=== PATIENT | female | born 1965 | race African-American/Black ===

== ENCOUNTER 2017-09-29 13:39 | Inpatient (IN) | payer OTHER ==
[~2017-09-29] VITALS: Ht 165.1 cm; Wt 102.7 kg
--- NOTE | ~2017-09-29 | HC ---
[facility] [place] [address] CONSULTATION Name: ANTOLIN POST Room #: 516-1 ADM IN M.R.#: [id number] Admission: 09/29/17 Attend Phys: Miguel Torres MD Discharge: Date of : 61 Report #: [id number] THIS REPORT FOR: //name// CC: Miguel Torres FAM physician/PCP DATE OF SERVICE: 10/05/2017 NEUROBEHAVIORAL STATUS EXAM: ATTENDING PHYSICIAN: Miguel Torres MD. EMPLOYMENT ADVISOR: Jose Elias Shah, PhD. CLINICAL PRESENTATION: The patient is a 51-year-old female admitted to the rehab unit at [facility] for comprehensive inpatient rehabilitation program to improve functional mobility, activities of daily living and self-care and mental status secondary to a right periventricular stroke. She presents with a dense left hemiplegia. Cognitive deficits are noted along with swallowing concerns. She has a history of brain cancer and is status post craniotomy in 1992, hypertension, hypothyroidism, iron deficiency anemia, urinary incontinence, history of depression and exogenous obesity is also reported. A complete description of her medical condition and history can be found in her medical record. Neuropsychological consultation was requested to provide assistance in the assessment of cognitive and emotional status and to provide recommendations and services. 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 The patient is a college graduate. She graduated from [employer] and remained in the for about 4-1/2 years. She is with one child. She is worried about her child's well being as her daughter has a history of drug abuse. The patient had been living with a male scabbler prior to her stroke. She has 4 sisters and one brother. TECHNIQUES UTILIZED: Clinical interview, review of medical records, staff consultation and behavioral observation, mini mental status exam 2 standard version and verbal fluency assessment and brief abstract reasoning test. EXAMINATION FINDINGS: The patient was alert and cooperative with the assessment. Her volume is quite soft during verbal expression. She accurately described the reason for her hospitalization. There is no evidence of aphasia. Her thoughts are logical and goal oriented. There is no evidence of thought disorder. She does not report auditory or visual hallucinations. The patient [address] [address] CONSULTATION Name: ANTOLIN POST Room #: 516-1 ADM IN .R.#: [id number] Admission: 09/29/17 Attend Phys: Miguel Torres MD Discharge: Date of : 61 Report #: [id number] is left handed and has left hemiparesis. However, she most likely has speech dominant in the left hemisphere as there is no aphasia that is noted. Symptoms are reported to include anxiety and depression. Her performance on the MMSE 2 brief version was a T score of 20, percentile rank of less than 1 suggesting moderate deficits. She was 3 of 3 for initial registration, 3 of 5 for orientation to time, 5 of [address] and 1 of 3 for immediate recall of 3 items after a brief time delay and distraction. Performance on the MMSE 2 standard version improved to a raw score of 23 and a T score of 24, which is still less than the 1st percentile. She was 4 of 5 for serial sevens, 2 of 2 for naming, 1 of 1 for repetition and 3 of 3 for auditory comprehension. She could read and follow a single command. Because of the hemiparesis, she was unable to write a sentence or copy a simple geometric design. Performance in letter fluency was in the mild to moderate range of impairment with a raw score of 20 and T score 32 and percentile rank of 4. Category fluency assessment was in the mild range of impairment with a T score of 36 and a percentile rank of 8. Brief abstract reasoning assessment was in the impaired range with a raw score of 5 of 8. The patient is showing deficits in immediate recall, verbal fluency suggesting impairment in organization, planning and problem solving. Mood appears depressed with increased anxiety in regard to her wellbeing and concern for her daughter. 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 Unspecified depressive disorder with anxiety. RECOMMENDATIONS: Continued involvement in the therapeutic program that includes verbal praise and complements about participation and emphasis on intact functioning that has not been impacted by the stroke. She may benefit from an antidepressant medication. The patient is currently taking nortriptyline at night. However, the use of an antidepressant, e.g., Lexapro, would be of benefit to assist in overall adjustment. A followup neuropsychological assessment after discharge will be of benefit to clarify the severity of cognitive deficits. [address] [address] CONSULTATION Name: ANTOLIN POST Room #: 516-1 ADM IN M.R.#: [id number] Admission: 09/29/17 Attend Phys: Miguel Torres MD Discharge: Date of : 61 Report #: [id number] Thank you very much for allowing me to provide the consultation on this patient. <ELECTRONICALLY SIGNED> By: Jose Elias Shah, PhD 10/06/17 1853 [id number] Jose Elias Shah, PhD /
--- NOTE | ~2017-09-29 | H ---
[facility] [place] [address] HISTORY AND PHYSICAL Name: SEJALANTOLIN Room #: 516-1 ADM IN M.R.#: [id number] Admission: 09/29/17 Attend Phys: Miguel Torres MD Discharge: Date of : 61 Report #: [id number] THIS REPORT FOR: //name// CC: Miguel Torres [facility] physician/PCP DATE OF SERVICE: 09/29/2017 HISTORY AND PHYSICAL/POSTADMISSION PHYSICIAN EVALUATION HISTORY OF PRESENT ILLNESS: The patient is a 51-year-old female, admitted from the [facility] to the acute inpatient rehabilitation [place] here at [facility]. She has a prior medical history of brain cancer, status post craniotomy in 1992, history of hypertension, and obesity, who presented with 3-month history of ataxia associated with flattening of affect and acute worsening over the past 3 days prior to her admission to the [place]. Her left-sided weakness progressed where she basically developed dense weakness of the left upper and left lower extremity. Initial radiographic evaluation was negative, but a followup MRI showed more conclusive evidence of stroke in the right periventricular area explaining the left-sided weakness. She has significant functional mobility and ADL deficits as well as cognitive and some swallowing concerns and she has now been transferred to the acute inpatient rehab [place] for inpatient multidisciplinary rehabilitation therapy. PAST MEDICAL HISTORY: Brain cancer, status post craniotomy as noted above. She has history of hypertension, hypothyroidism, and exogenous obesity. There is a noted history of urinary incontinence, which has been a chronic issue, and history of depression. MEDICATIONS: Please see the full medication listing. This includes vitamins, herbals, and supplements. ALLERGIES: INCLUDE LISINOPRIL. DIET: She is on a 2-gram sodium diet. SOCIAL HISTORY: She lives in a house with her male significant other. There are a number of steps into the house. She notes that her boyfriend is currently looking for a job close by his parents' house. Her father apparently works, but her stepmother does not work. REVIEW OF SYSTEMS: She did not offer any current complaints of chest pain, shortness of breath or abdominal discomfort. She notes the left-sided weakness. Denies any focal extremity pain complaints. PHYSICAL EXAMINATION: [facility] [address] [place] [address] HISTORY AND PHYSICAL Name: ANTOLIN POST Room #: 516-1 ADM IN [facility].#: [id number] Admission: 09/29/17 Attend Phys: Miguel Torres MD Discharge: Date of : 61 Report #: [id number] GENERAL: She is a pleasant, obese, 51-year-old -Filipino female, in no obvious distress. She is alert. VITAL SIGNS: Temperature 36.7, pulse 100, respirations 20, blood pressure 131/81. HEENT: Appear to be benign. Appears to be able to scan to the left side reasonably well. NEUROLOGIC: She does have a depressed left nasolabial fold. She is able to verbalize quite well. I could not detect any obvious word finding problems. CHEST: Sounded clear to auscultation. CARDIOVASCULAR: Regular rate and rhythm. ABDOMEN: Obese, bowel sounds positive, nontender. GENITOURINARY AND RECTAL: Deferred. SCALP: She does have a hat on in. Notes that she did have a prior history of a craniotomy. MUSCULOSKELETAL: She has functional range of motion of the right upper and right lower extremity without obvious focal weakness. She notes she premorbidly is left handed. She has dense left upper extremity plegia and left lower extremity plegia with no volitional movement. DTRs are flaccid. There is no calf swelling. No distal lower extremity edema. She has been needing 2 people to assist with transfers. ASSESSMENT: A 51-year-old left-handed -Filipino female with the following problem list: 1. Right periventricular area stroke. 2. Dense left hemiplegia. 3. Cognitive concerns as well as some swallowing concerns. Nursing questioned how she was able to do with her pills. We will have speech therapy evaluate swallowing. She was admitted on a low-sodium diet. 4. Past history of brain cancer, status post craniotomy in 1992. 5. Hypertension. 6. Hypothyroidism. 7. Iron deficiency anemia. 8. History of urinary incontinence. 9. History of depression. 10. Exogenous obesity. PLAN: The patient is admitted for acute in-hospital inpatient rehabilitation. From a postadmission physician evaluation perspective, there are no relevant changes since the preadmission screening. Please see the above review of prior and current medical and functional conditions and comorbidities. Please see the patient's previous and current functional status. As far as risk of complications, this patient has multiple medical comorbidities as noted above. The initial plan of care involves the interdisciplinary acute inpatient rehabilitation program with the goal of maximizing the patient's functional independence, so that she can hopefully return back to her prior living situation. Measurable functional goals will include transfers, basic mobility, [facility] [address] [place] [address] HISTORY AND PHYSICAL Name: BOARD,ANTOLIN EUNICE Room #: 516-1 ADM IN M.R.#: [id number] Admission: 09/29/17 Attend Phys: Miguel Torres MD Discharge: Date of : 61 Report #: [id number] ADLs, maximizing her functional independence, cognitive as well as swallowing issues. Prognosis is reasonably good, although she is likely going to need a fair amount of assistance post-discharge depending upon how she progresses. Estimated length of stay is probably several weeks at her lower level. Potential barriers would include her multiple medical comorbidities and decreased functional status. <ELECTRONICALLY SIGNED> By: Miguel Torres MD 10/03/17 1023 [id number] [id number] Miguel Torres MD /nt
--- NOTE | ~2017-09-29 | PLAN ---
[facility] [place] [address] REHAB UNIT PLAN OF CARE Name: ANTOLIN POST Room #: 516-1 ADM IN M.R.#: [id number] Admission: 09/29/17 Attend Phys: Miguel Torres MD Discharge: Date of : 61 Report #: [id number] THIS REPORT FOR: //name// CC: Miguel Torres [facility] physician/PCP DATE OF SERVICE: 10/01/2017 PROGRESS NOTE/OVERALL PLAN OF CARE The patient is seen back today in followup. No new complaints. Last recorded temperature 98.3, pulse 91, respirations 20, blood pressure 127/76. She is now showing a little bit of return of the left upper extremity with a grade trace-to-2+ left wrist extension, she has got at least a grade 2 elbow flexion. Left lower extremity, she does have some knee extension at grade 2, no movement of the ankle or foot. She has at least a trace left finger flexion. Functionally, transfers are max assist, she is unable to ambulate. In occupational therapy, lower body dressing is dependent and upper body dressing is max assist. In speech therapy, she has mild comprehensive deficits. ASSESSMENT: 1. Right periventricular area stroke. 2. Dense left hemiparesis with some volitional recovery appearing. 3. Cognitive concerns and swallowing concerns. Speech Therapy is involved. They have asked me to add VitalStim to her left labial area. 4. Past history of brain cancer status post craniotomy in 1992. 5. Hypertension. 6. Hypothyroidism. 7. Iron deficiency anemia. 8. History of urinary incontinence. 9. History of depression. 10. Anxiety. 11. Obesity. PLAN: The overall plan of care is based on the preadmission screen, postadmission physician evaluation, and information garnered from therapy assessments. 1. Estimated length of stay is probably fairly long, 3-4 weeks, potentially longer pending progress. She is at a lower functional level. 2. Medical prognosis is reasonably good. 3. Anticipated interventions include the interdisciplinary acute inpatient rehabilitation program with PT, OT, speech rehab, nursing assisting regarding medication management, skin care prophylaxis, bowel and bladder issues and nursing education. Case management is involved as well as the corporate health consultant physicians. 4. Anticipated functional outcomes would be for the patient to ideally become [place] [id number] REHAB UNIT PLAN OF CARE Name: ANTOLIN POST EUNICE Room #: 516-1 ADM IN [facility].#: [id number] Admission: 09/29/17 Attend Phys: Miguel Torres MD Discharge: Date of : 61 Report #: [id number] modified independent at least initially at the wheelchair level and then hopefully further progress from there. 5. Discharge destination would be probably to her parents' house as it is my understanding has fewer steps than her male significant other. 6. Expected therapy by discipline includes PT, OT and speech 1 hour per day, each five days a week throughout the duration of the acute inpatient rehabilitation stay. <ELECTRONICALLY SIGNED> By: Miguel Torres MD 10/03/17 1025 1015 [id number] Miguel Torres MD /nt
--- NOTE | ~2017-09-29 | HC ---
[facility] [place] [address] CONSULTATION Name: ANTOLIN POST Room #: 516-1 ADM IN M.R.#: [id number] Admission: 09/29/17 Attend Phys: Miguel Torres MD Discharge: Date of : 61 Report #: [id number] THIS REPORT FOR: //name// CC: Miguel Torres FAM physician/PCP DATE OF SERVICE: 10/13/2017 PROGRESS NOTE ATTENDING PHYSICIAN: Miguel Torres MD SUBJECTIVE: The patient was seen for followup psychological services. A concern in regard to depression has been noted. The patient is continuing to deny subjective depression or anxiety. However, her mood and affect appears depressed. She does not report difficulty with appetite or sleep. She indicates a desire to walk out of the hospital, suggesting decreased insight into the type of deficits she is experiencing and the extent of impairment. Diminished insight into deficits will likely create safety concerns. The focus of therapy in regard to depression includes encouraging awareness of intact levels of functioning and the opportunity to develop new skills in regard to the nondominant hand. Identifying strengths and resources that are intact as well as the perception of new skill development is a way to enhance hopefulness. The patient also reports concern about her ability to walk. We discussed the purpose of ambulation and mobility and how that could possibly be obtained with use of a wheelchair. She is likely to benefit from the use of an antidepressant medication to improve overall mood. Verbal praise and complements about participation in therapies along with emphasis on the development of new skills will also assist her overall adjustment. Thank you very much for allowing me to provide the consultation on this patient. <ELECTRONICALLY SIGNED> By: Jose Elias Shah, PhD 10/20/17 1725 1622 1641 Jose Elias Shah, PhD /nt
[2017-09-29 18:49] VITALS: BP 138/86
[2017-09-29 22:25] VITALS: BP 147/74
[2017-09-30 08:30] VITALS: BP 131/81
[2017-09-30 14:42] LABS: HEMATOCRIT 33.6 % (37.0-47.0); HEMOGLOBIN 11.2 gm/dL (12.0-15.0); MCH 28.1 pg (26.0-34.0); MCHC 33.2 g/dL (28.0-37.0); MCV 84.7 fL (80.0-100.0); RBC 3.97 mil/uL (4.20-5.00); RDW 15.7 % (10.5-14.5); WBC 5.6 thou/uL (4.0-11.0)
[2017-09-30 14:48] LABS: CALCIUM 9.4 mg/dL (8.5-10.1); POTASSIUM 4.4 mmol/L (3.5-5.1)
[2017-09-30 20:30] VITALS: BP 127/76
[2017-10-01 08:15] VITALS: BP 130/78
[2017-10-01 13:35] LABS: CHOLESTEROL 142 mg/dL (<200); HDL CHOLESTEROL 51 mg/dL (>40); LDL CHOLESTEROL 74 mg/dL (<100); TC:HDL 2.8 Ratio (Not establshd); TRIGLYCERIDE 89 mg/dL (<150); VLDL 18 mg/dL (<40)
[2017-10-01 22:06] VITALS: BP 145/53
[2017-10-02 08:15] VITALS: BP 130/89
[2017-10-02 21:47] VITALS: BP 152/91
[2017-10-03 08:34] VITALS: BP 134/82
[2017-10-03 21:19] VITALS: BP 134/65
[2017-10-04 08:30] VITALS: BP 125/68
[2017-10-04 14:07] LABS: HEMATOCRIT 32.3 % (37.0-47.0); HEMOGLOBIN 10.8 gm/dL (12.0-15.0); MCH 28.3 pg (26.0-34.0); MCHC 33.4 g/dL (28.0-37.0); MCV 84.8 fL (80.0-100.0); RBC 3.81 mil/uL (4.20-5.00); RDW 15.9 % (10.5-14.5); WBC 5.4 thou/uL (4.0-11.0)
[2017-10-04 14:29] LABS: ALBUMIN 3.3 g/dL (3.4-5.0); CALCIUM 9.2 mg/dL (8.5-10.1); MAGNESIUM 2.3 mg/dL (1.8-2.4); POTASSIUM 3.7 mmol/L (3.5-5.1); TOTAL BILIRUBIN 0.3 mg/dL (<0.1-1.0); TOTAL PROTEIN 7.8 g/dL (6.4-8.2)
[2017-10-04 19:28] VITALS: BP 152/73
[2017-10-05 06:24] LABS: HEMATOCRIT 31.4 % (37.0-47.0); HEMOGLOBIN 10.4 gm/dL (12.0-15.0); MCHC 33.1 g/dL (28.0-37.0); MCV 84.5 fL (80.0-100.0); RBC 3.72 mil/uL (4.20-5.00); RDW 15.4 % (10.5-14.5); WBC 6.1 thou/uL (4.0-11.0)
[2017-10-05 06:32] LABS: CALCIUM 9.1 mg/dL (8.5-10.1); CREATININE 0.9 mg/dL (0.6-1.0); MAGNESIUM 2.3 mg/dL (1.8-2.4); POTASSIUM 3.5 mmol/L (3.5-5.1)
[2017-10-05 08:30] VITALS: BP 134/85
[2017-10-05 19:47] VITALS: BP 140/60
[2017-10-06 07:45] VITALS: BP 147/81
[2017-10-06 21:05] VITALS: BP 144/88
[2017-10-07 06:51] LABS: CALCIUM 9.1 mg/dL (8.5-10.1); CREATININE 0.9 mg/dL (0.6-1.0); POTASSIUM 3.4 mmol/L (3.5-5.1)
[2017-10-07 08:45] VITALS: BP 133/87
[2017-10-07 19:57] VITALS: BP 120/80
[2017-10-08 09:00] VITALS: BP 137/78
[2017-10-08 20:11] VITALS: BP 118/77
[2017-10-09 08:05] VITALS: BP 121/71
[2017-10-09 20:30] VITALS: BP 138/79
[2017-10-10 06:33] LABS: ABSOLUTE NEUTROPHILS 2.8 thou/uL (1.4-8.2); BASOPHILS 1.1 % (0.0-2.0); EOSINOPHILS 4.6 % (0.0-3.0); HEMATOCRIT 31.1 % (37.0-47.0); HEMOGLOBIN 10.5 gm/dL (12.0-15.0); LYMPHOCYTES 24.9 % (24.0-44.0); MCH 28.5 pg (26.0-34.0); MCHC 33.6 g/dL (28.0-37.0); MCV 84.7 fL (80.0-100.0); MONOCYTES 9.1 % (1.0-8.0); PLATELET COUNT 407 thou/uL (150-400); POLYS 60.3 % (36.0-66.0); RBC 3.67 mil/uL (4.20-5.00); RDW 15.5 % (10.5-14.5); WBC 4.7 thou/uL (4.0-11.0)
[2017-10-10 06:44] LABS: CALCIUM 9.1 mg/dL (8.5-10.1); CREATININE 0.9 mg/dL (0.6-1.0); MAGNESIUM 2.3 mg/dL (1.8-2.4); POTASSIUM 3.6 mmol/L (3.5-5.1)
[2017-10-10 09:00] VITALS: BP 134/96
[2017-10-10 20:46] VITALS: BP 152/78
[2017-10-11 08:00] VITALS: BP 136/78
[2017-10-11 21:28] VITALS: BP 138/80
[2017-10-12 08:40] VITALS: BP 124/76
[2017-10-12 20:55] VITALS: BP 130/78
[2017-10-13 08:47] VITALS: BP 130/72
[2017-10-13 19:40] VITALS: BP 138/62
[2017-10-14 06:24] LABS: CALCIUM 8.9 mg/dL (8.5-10.1); POTASSIUM 3.8 mmol/L (3.5-5.1)
[2017-10-14 08:00] VITALS: BP 124/72
[2017-10-14 20:05] VITALS: BP 138/86
[2017-10-15 09:17] VITALS: BP 134/83
[2017-10-15 20:00] VITALS: BP 146/42
[2017-10-16 08:29] VITALS: BP 127/75
[2017-10-16 21:08] VITALS: BP 131/66
[2017-10-17 07:20] VITALS: BP 113/71
[2017-10-17 20:06] VITALS: BP 133/74
[2017-10-18 08:00] VITALS: BP 138/79
[2017-10-18 21:03] VITALS: BP 136/76
[2017-10-19 08:00] VITALS: BP 129/84
[2017-10-19 20:15] VITALS: BP 133/82
[2017-10-20 10:09] VITALS: BP 144/78
[2017-10-21 08:00] VITALS: BP 130/78
[2017-10-21 20:00] VITALS: BP 141/84
[2017-10-22 04:51] LABS: CALCIUM 8.8 mg/dL (8.5-10.1); MAGNESIUM 2.3 mg/dL (1.8-2.4); POTASSIUM 3.5 mmol/L (3.5-5.1)
[2017-10-22 05:22] LABS: BASOPHILS 1.1 % (0.0-2.0); EOSINOPHILS 5.5 % (0.0-3.0); HEMATOCRIT 29.3 % (37.0-47.0); HEMOGLOBIN 9.8 gm/dL (12.0-15.0); LYMPHOCYTES 25.1 % (24.0-44.0); MCH 28.4 pg (26.0-34.0); MCHC 33.4 g/dL (28.0-37.0); MCV 84.9 fL (80.0-100.0); MONOCYTES 9.4 % (1.0-8.0); PLATELET COUNT 388 thou/uL (150-400); POLYS 58.9 % (36.0-66.0); RBC 3.45 mil/uL (4.20-5.00); RDW 15.8 % (10.5-14.5)
[2017-10-22 08:45] VITALS: BP 127/86
[2017-10-22 20:00] VITALS: BP 138/74
[2017-10-23 20:04] VITALS: BP 141/58
[2017-10-24 08:00] VITALS: BP 129/71
[2017-10-24 19:50] VITALS: BP 140/71
[2017-10-25 07:40] VITALS: BP 131/68
[2017-10-25 21:02] VITALS: BP 150/80
[2017-10-26 06:50] VITALS: BP 131/72
[2017-10-26 21:23] VITALS: BP 123/77
[2017-10-27 08:53] VITALS: BP 127/71
[2017-10-27 15:08] VITALS: BP 125/85
[2017-10-27 19:33] VITALS: BP 133/80
[2017-10-28 07:59] VITALS: BP 117/81
[2017-10-28 19:35] VITALS: BP 150/83
[2017-10-29 05:58] LABS: HEMOGLOBIN 9.5 gm/dL (12.0-15.0); MCH 27.8 pg (26.0-34.0); MCHC 32.6 g/dL (28.0-37.0); MCV 85.3 fL (80.0-100.0); RBC 3.4 mil/uL (4.20-5.00); RDW 15.6 % (10.5-14.5); WBC 5.1 thou/uL (4.0-11.0)
[2017-10-29 06:15] LABS: CREATININE 1.1 mg/dL (0.6-1.0); POTASSIUM 3.8 mmol/L (3.5-5.1)
[2017-10-29 08:30] VITALS: BP 134/83
[2017-10-29 20:25] VITALS: BP 141/78
[2017-10-30 08:09] VITALS: BP 134/79
[2017-10-30 22:46] VITALS: BP 140/71
[2017-10-31 07:05] VITALS: BP 131/78
[2017-10-31 20:20] VITALS: BP 145/74
[2017-11-01 07:30] VITALS: BP 125/86
[2017-11-01 19:35] VITALS: BP 123/67
[2017-11-02 19:30] VITALS: BP 130/63
[2017-11-03 21:11] VITALS: BP 147/88
[2017-11-04 06:29] LABS: HEMATOCRIT 30.1 % (37.0-47.0); HEMOGLOBIN 10.1 gm/dL (12.0-15.0); MCH 28.6 pg (26.0-34.0); MCHC 33.5 g/dL (28.0-37.0); MCV 85.2 fL (80.0-100.0); RBC 3.53 mil/uL (4.20-5.00); RDW 16.1 % (10.5-14.5)
[2017-11-04 06:38] LABS: CALCIUM 9.4 mg/dL (8.5-10.1); CREATININE 0.9 mg/dL (0.6-1.0); MAGNESIUM 2.3 mg/dL (1.8-2.4); POTASSIUM 3.6 mmol/L (3.5-5.1)
[2017-11-04 07:45] VITALS: BP 132/72
[2017-11-04 16:06] VITALS: BP 117/78
[2017-11-04 19:43] VITALS: BP 134/82
[2017-11-05 08:00] VITALS: BP 117/79
[2017-11-05] MEDS ORDERED: MIRALAX17 GM PO (09:51)
[2017-11-05] MEDS ORDERED: LIPITOR40 MG PO (09:51)
[2017-11-05] MEDS ORDERED: FELODIPINE ER10 MG PO (09:51)
[2017-11-05] MEDS ORDERED: OXYBUTYNIN 5 MG5 M2 PO (09:51)
[2017-11-05] MEDS ORDERED: BAYER CHEWABLE81 MG PO (09:51)
[2017-11-05] MEDS ORDERED: PAMELOR50 MG PO (09:51)
[2017-11-05] MEDS ORDERED: IRON325 PO (09:51)
[2017-11-05] MEDS ORDERED: TYLENOL325 MG PO (09:51)
[2017-11-05] MEDS ORDERED: SYNTHROID125 MC1 PO (09:51)
[2017-11-05] MEDS ORDERED: SENNA8.6 MG PO (09:51)
[2017-11-05] MEDS ORDERED: COZAAR100 MG PO (09:51)
[2017-11-05] MEDS ORDERED: COREG3.125 MG PO (09:51)
[2017-11-05] MEDS ORDERED: COLACE100 MG PO (09:51)
== END 2017-11-05 17:15 | DRG 65 ==
PROVIDERS: Internal Medicine; Nurse Practitioner; Nurse Practitioner Family; Physical Medicine & Rehabilitation
PROC: 02HV33Z Insertion of Infusion Device into Superior Vena Cava, Percutaneous Approach (ICD-10-PCS; principal; 2017-09-30)
DX: I63.9 Cerebral infarction, unspecified (principal); G81.04 Flaccid hemiplegia affecting left nondominant side; I10 Essential (primary) hypertension; Z68.37 Body mass index [BMI] 37.0-37.9, adult; R26.9 Unspecified abnormalities of gait and mobility; E03.9 Hypothyroidism, unspecified; F32.9 Major depressive disorder, single episode, unspecified; D50.9 Iron deficiency anemia, unspecified; R32 Unspecified urinary incontinence; Z85.841 Personal history of malignant neoplasm of brain; Z88.8 Allergy status to other drugs, medicaments and biological substances; F41.9 Anxiety disorder, unspecified; E66.09 Other obesity due to excess calories; F01.50 Vascular dementia, unspecified severity, without behavioral disturbance, psychotic disturbance, mood disturbance, and anxiety; S39.012A Strain of muscle, fascia and tendon of lower back, initial encounter; X58.XXXA Exposure to other specified factors, initial encounter; Y93.89 Activity, other specified; Y92.89 Other specified places as the place of occurrence of the external cause; Y99.8 Other external cause status
CPT/HCPCS: 10112